=== PATIENT | female | born 1990 | race Caucasian/White ===

== ENCOUNTER 2017-08-20 12:46 | Emergency (ER) | payer BC ==
[2017-08-20 13:43] LABS: ABS Basophils 0 10^3/ul (0-0.2); ABS Eosinophils 0 10^3/ul (0-0.6); ABS Lymphocytes 1.6 10^3/ul (1.0-4.8); ABS Monocytes 0.4 10^3/ul (0-0.8); ABS Neutrophils 7.1 10^3/ul (1.5-7.7); ABS Nucleated RBC 0 10^3/ul; Eosinophil % 0.1 % (0-6); Hematocrit 41 % (35-47); Hemoglobin 14.2 g/dl (12.0-16.0); Lymphocyte % 17.8 % (25-47); Mean Corpuscular HGB Conc 35 g/dl (31-36); Mean Corpuscular Hemoglobin 33 pg (27-31); Mean Corpuscular Volume 94 fL (80-97); Mean Platelet Volume 7.8 um3 (7.4-10.4); Nucleated Red Blood Cells % 0.1; Platelet Count 192 10^3/ul (150-450); Red Blood Count 4.36 10^6/ul (4.0-5.4); Red Cell Distribution Width 12 % (10.5-15); White Blood Count 9.1 10^3/ul (3.5-10.8)
[2017-08-20 13:45] LABS: Urine Appearance Clear; Urine Blood Negative (Negative); Urine Color Yellow; Urine Ketones Negative (Negative); Urine Protein Negative (Negative); Urine Specific Gravity 1.008 (1.010-1.030); Urine Urobilinogen Negative (Negative)
[2017-08-20 14:18] LABS: EGFR Non-African American 118.6 (>60)
[2017-08-20 17:17] VITALS: BP 135/76
--- NOTE | 2017-08-20 18:08 | ED ---
Abdominal Pain/Female - HPI Summary HPI Summary: Pt. is a 27 y.o who presents to the ER for evaluation of epigastric abd. pain that has been intermittent since yesterday. Pt. described pain as a pressure/ sharp pain to epigastric region. She admits to nausea and an episode of vomiting last night. Pt. denies recent URI sx, diarrhea, constipation, urinary symptoms. She has no past medical hx. She did not take any medication for pain. Since being in the ER she states that her pain has completely resolved. No current modifying factors. - History of Current Complaint Chief Complaint: EDAbdPain Stated Complaint: ABD PAIN Time Seen by Provider: 08/20/17 16:25 Hx Obtained From: Patient, Family/Commercial Lending Relationship Manager Pain Intensity: 0 Pain Scale Used: 0-10 Numeric Allergies/Adverse Reactions: Allergies Allergy/AdvReac Type Severity Reaction Status Date / Time No Known Allergies Allergy Verified 08/20/17 13:05 PMH/Surg Hx/FS Hx/Imm Hx Previously Healthy: Yes - Immunization History Immunizations Up to Date: Yes Infectious Disease History: No Infectious Disease History: Denies: Traveled Outside the [place] in Last 30 Days - Social History Occupation: Employed Full-time Lives: With Family Alcohol Use: None Substance Use Type: Reports: Marijuana Substance Use Comment - Amount & Last Used: 2 x weekly Smoking Status (MU): Never Smoked Tobacco Review of Systems Constitutional: Negative Negative: Fever, Chills Eyes: Negative ENT: Negative Cardiovascular: Negative Negative: Palpitations, Chest Pain Respiratory: Negative Negative: Shortness Of Breath, Cough Positive: Abdominal Pain, Vomiting, Nausea. Negative: Diarrhea Genitourinary: Negative Negative: burning, dysuria, frequency Neurological: Negative All Other Systems Reviewed And Are Negative: Yes Physical Exam Triage Information Reviewed: Yes Vital Signs On Initial Exam: Initial Vitals Temp Pulse Resp BP Pulse Ox 98.3 F 70 14 133/77 99 08/20/17 13:02 08/20/17 13:02 08/20/17 13:02 08/20/17 13:02 08/20/17 13:02 Vital Signs Reviewed: Yes Appearance: Positive: Well-Appearing - Pt. lying on bed in NAD. Mother present. Pleasant., Well-Nourished Skin: Positive: Warm, Dry Head/Face: Positive: Normal Head/Face Inspection Eyes: Positive: Normal Neck: Positive: Supple Respiratory/Lung Sounds: Positive: Clear to Auscultation, Breath Sounds Present Cardiovascular: Positive: Normal, RRR Abdomen Description: Positive: Other: - Abdomen is soft and nontender in all quadrants. No right upper quadrant tenderness. Negative [place] sign. Neurological: Positive: Normal, CN Intact II-III Psychiatric: Positive: Affect/Mood Appropriate Diagnostics - Vital Signs Vital Signs Temp Pulse Resp BP Pulse Ox 08/20/17 17:15 97.6 F 77 17 135/76 99 08/20/17 13:02 98.3 F 70 14 133/77 99 - Laboratory Lab Results: Lab Results 08/20/17 08/20/17 08/20/17 Range/Units 13:15 13:35 13:35 WBC 9.1 (3.5-10.8) 10^3/ul RBC 4.36 (4.0-5.4) 10^6/ul Hgb 14.2 (12.0-16.0) g/dl Hct 41 (35-47) % MCV 94 (80-97) fL MCH 33 H (27-31) pg MCHC 35 (31-36) g/dl RDW 12 (10.5-15) % Plt Count 192 (150-450) 10^3/ul MPV 7.8 (7.4-10.4) um3 Neut % (Auto) 77.9 (38-83) % Lymph % (Auto) 17.8 L (25-47) % [place] % (Auto) 3.9 (0-7) % Eos % (Auto) 0.1 (0-6) % Baso % (Auto) 0.3 (0-2) % Absolute Neuts (auto) 7.1 (1.5-7.7) 10^3/ul Absolute Lymphs (auto) 1.6 (1.0-4.8) 10^3/ul Absolute Monos (auto) 0.4 (0-0.8) 10^3/ul Absolute Eos (auto) 0 (0-0.6) 10^3/ul Absolute Basos (auto) 0 (0-0.2) 10^3/ul Absolute Nucleated RBC 0 10^3/ul Nucleated RBC % 0.1 Sodium 140 (139-145) mmol/L Potassium 3.7 (3.5-5.0) mmol/L Chloride 106 (101-111) mmol/L Carbon Dioxide 26 (22-32) mmol/L Anion Gap 8 (2-11) mmol/L BUN 8 (6-24) mg/dL Creatinine 0.61 (0.51-0.95) mg/dL Est GFR ( Amer) 152.5 (>60) Est GFR (Non-Af Amer) 118.6 (>60) BUN/Creatinine Ratio 13.1 (8-20) Glucose 97 (70-100) mg/dL Calcium 9.7 (8.6-10.3) mg/dL Total Bilirubin 1.00 (0.2-1.0) mg/dL AST 20 (13-39) U/L ALT 17 (7-52) U/L Alkaline Phosphatase 56 (34-104) U/L Total Protein 7.2 (6.4-8.9) g/dL Albumin 4.6 (3.2-5.2) g/dL Globulin 2.6 (2-4) g/dL Albumin/Globulin Ratio 1.8 (1-3) Beta HCG, Quant < 0.60 mIU/mL Urine Color Yellow Urine Appearance Clear Urine pH 8.0 (5-9) Ur Specific [place] 1.008 L (1.010-1.030) Urine Protein Negative (Negative) Urine Ketones Negative (Negative) Urine Blood Negative (Negative) Urine Nitrate Negative (Negative) Urine Bilirubin Negative (Negative) Urine Urobilinogen Negative (Negative) Ur Leukocyte Esterase Negative (Negative) Urine Glucose Negative (Negative) Result Diagrams: 08/20/17 13:35 08/20/17 13:35 Lab Statement: Any lab studies that have been ordered have been reviewed, and results considered in the medical decision making process. Abdominal Pain Fem Course/Dx - Course Course Of Treatment: Patient presenting for evaluation of recent epigastric abdominal pain. In the emergency department she is pain-free and has a benign abdominal exam. She is afebrile. Basic labs and urine were obtained in triage. Blood work is unremarkable. Based on patient's symptoms suspicious for gastritis. Advised patient to take [id number] Pepcid if symptoms return. To avoid foods high in caffeine, alcohol, spicy. Advised close follow- up with PCP and return to the ER for increased pain, fever, vomiting or if concerned. Advised patient if pain changes or worsens she may need imaging. Patient and mother understand and are comfortable with this. - Diagnoses Differential Diagnosis: Positive: Appendicitis, Bowel Obstruction, Constipation , Ectopic , Gall Bladder Disease, Peptic Ulcer Disease, , Renal Colic, Urinary Tract Infection Provider Diagnoses: Gastritis Discharge - Sign-Out/Discharge Documenting (check all that apply): Discharge/Admit/Transfer - Discharge Plan Condition: Good Disposition: HOME Patient Education Materials: Gastritis (ED), Gastroesophageal Reflux Disease ( ED) Referrals: Jaiden WHITNEY,Stella Iraheta [Primary Care Provider] - Additional Instructions: Schedule a follow up appointment with PCP Take an over the counter Pepcid as directed Avoid foods high in fat, spice, caffeine, alcohol, smoking Return to ER for increased pain, fever, vomiting or if concerned - Billing Disposition and Condition Condition: GOOD Disposition: HOME
== END 2017-08-20 17:20 | disposition home or self-care (01) ==
LOC: ED 12:46
DX: K29.70 Gastritis, unspecified, without bleeding (principal)
CPT/HCPCS: 36415; 80053; 81003; 84702; 85025; 99282